=== PATIENT | female | born 1970 | race Asian ===

== ENCOUNTER 2017-07-04 23:43 | Emergency (ER) | payer BC ==
[2017-07-05 03:12] VITALS: BP 107/73
== END 2017-07-05 03:12 | disposition home or self-care (01) ==
LOC: ED 23:43
DX: H81.10 Benign paroxysmal vertigo, unspecified ear (principal); E78.00 Pure hypercholesterolemia, unspecified
CPT/HCPCS: 82962; J1885; J2405; J7030; J8597